=== PATIENT | male | born 1970 | race Caucasian/White ===

== ENCOUNTER → 2019-03-26 | Emergency (ER) | payer MEDICAID ==
[~2019-03-26] VITALS: Ht 175.3 cm; Wt 71.7 kg
[~2019-03-26] MED LIST: AMOXICILLIN500 MG ORAL; BENTYL10 MG ORAL; NKM; PERMETHRIN60 GM TOPIC
[2019-03-26 08:45] VITALS: BP 100/64
--- NOTE | 2019-03-26 08:45 | NUR ---
ED Nurse Note: PT AAOX4, VSS, WITH NO SIGN OF DISTRESS. PT WALKED IN TO ER C/O RIGHT EARACHE X 3 DAYS AGO. PT DENIES DRAINAGE OR CHANGES IN HEARING. PT ALSO SUSPECTS SCABIES DUE TO GENERALIZED ITCHING X 2 WEEKS AGO. PT HAS TWO SCRATCHES ON LEFT ARM. NO MAJOR SKIN ISSUES NOTED.
--- NOTE | 2019-03-26 08:50 | NUR ---
ED Nurse Note: MD AT BEDSIDE. PT IS CALM AND COOPERATIVE.
[2019-03-26 09:07] VITALS: BP 101/62
--- NOTE | 2019-03-26 09:07 | NUR ---
ER DISCHARGE NOTE: Patient is cleared to be discharged per ERMD, pt is aox4, on room air, with stable vital signs. pt was given dc and prescription instructions, pt was able to verbalize understanding, pt id band and iv site removed without complications. pt is able to ambulate with steady gait. pt took all belongings.
--- NOTE | 2019-03-26 09:49 | Emergency Room Report ---
History of Present Illness General Chief Complaint: Earache Source: Patient Present Illness HPI 48-year-old male presents ED for evaluation. Complaining of right ear pain and rash for the last 3 days. Pain is dull, 5 out of 10, nonradiating. Denies fevers or chills. Denies cough. Denies recent travel. Patient states he thinks he has shingles scabies. States he has had it previously. Feels the same. Denies pain. States is very itchy to his general body. States he resides in a home which is very dirty with multiple other residents. No other aggravating relieving factors. Denies any other associated symptoms Allergies: Coded Allergies: No Known Allergies (Unverified , 01/12/16) Patient History Past Medical History: other - ulceratie colitis Past Surgical History: none Pertinent Family History: none Social History: Denies: smoking, alcohol use, drug use Immunizations: UTD Reviewed Nursing Documentation: PMH: Agreed; PSxH: Agreed Nursing Documentation-PMH Past Medical History: No History, Except For Hx Gastrointestinal Problems: Yes - Ulcerative collitis Review of Systems All Other Systems: negative except mentioned in HPI Physical Exam Vital Signs Date Time Temp Pulse Resp B/P (MAP) Pulse Ox O2 Delivery O2 Flow Rate FiO2 03/26/19 08:37 97.9 60 16 100/64 (76) 100 Room Air Sp02 EP Interpretation: reviewed, normal General Appearance: no apparent distress, alert, GCS 15, non-toxic Head: normocephalic, atraumatic Eyes: bilateral eye normal inspection, bilateral eye PERRL ENT: hearing grossly normal, normal pharynx, no angioedema, normal voice, other - R TM poor light reflex, erythematous Neck: full range of motion, supple/symm/no masses Respiratory: chest non-tender, lungs clear, normal breath sounds, speaking full sentences Cardiovascular #1: regular rate, rhythm, no edema Cardiovascular #2: 2+ carotid (R), 2+ carotid (L), 2+ radial (R), 2+ radial (L) , 2+ dorsalis pedis (R), 2+ dorsalis pedis (L) Gastrointestinal: normal bowel sounds, non tender, soft, non-distended, no guarding, no rebound Rectal: deferred Genitourinary: normal inspection, no CVA tenderness Musculoskeletal: back normal, gait/station normal, normal range of motion, non- tender Neurologic: alert, oriented x3, responsive, motor strength/tone normal, sensory intact, speech normal Psychiatric: judgement/insight normal, memory normal, mood/affect normal, no suicidal/homicidal ideation Reflexes: 3+ bicep (R), 3+ bicep (L), 3+ tricep (R), 3+ tricep (L), 3+ knee (R) , 3+ knee (L) Skin: rash - multiple linear excoriations to diffuse skin. nonerythematous base. no discharge Lymphatic: no adenopathy Medical Decision Making Diagnostic Impression: Primary Impression: Rash Additional Impression: Otitis media Qualified Codes: H66.90 - Otitis media, unspecified, unspecified ear ER Course Hospital Course 48 yo M presents to ED c/o R ear pain. rash to body Differential diagnoses include: TM perforation, otitis externa, otitis media Clinical course Patient placed on stretcher. After initial history, physical exam reveals a male in no acute distress. R TM poor light reflex. There is a diffuse linear rash to the body. Excoriations. None erythematous base. Consideration for rabies based on presentation. discussed findings with patient. Will discharge home with prescriptions for amoxicillin and permethrin. Safe for discharge for close outpatient follow-up. Does not have a PMD. Will provide referrals Diagnosis - otitis media, rash Stable and discharged to home with Rx permethin, amoxicillin. Followup with PMD. Return to ED if symptoms recur or worsen Last Vital Signs Date Time Temp Pulse Resp B/P (MAP) Pulse Ox O2 Delivery O2 Flow Rate FiO2 03/26/19 09:07 97.6 68 18 101/62 100 Room Air Status: improved Disposition: HOME, SELF-CARE Condition: Stable Scripts Amoxicillin* (AMOXIL*) 500 Mg Capsule 500 MG ORAL THREE TIMES A DAY, #21 CAP Prov: David Tamez MD 03/26/19 Permethrin* (ELIMITE*) 60 Gm Cream..g. 1 APPLIC TOPIC ONCE, #60 GM 1 Refill Apply cream from head to toe; leave on for 8-14 hours before washing off with water; may reapply in 1 week if live mites appear. Prov: David Tamez MD 03/26/19 Referrals: [facility] Patient Instructions: Contact Precautions, [id number], Otitis Media, Adult David Tamez MD Mar 26, 2019 09:49
== END | disposition home or self-care (01) ==
LOC: EMR 09:52
DX: H66.90 Otitis media, unspecified, unspecified ear (principal); R21 Rash and other nonspecific skin eruption
CPT/HCPCS: 99282

== ENCOUNTER 2019-04-09 13:16 | Emergency (ER) | payer MEDICAID ==
[~2019-04-09] VITALS: Ht 175.3 cm; Wt 72.6 kg
[2019-04-09 13:37] VITALS: BP 112/62
--- NOTE | 2019-04-09 13:47 | NUR ---
ED Nurse Note: PT FROM HOME CAME IN DUE TO RIGHT EAR PAIN. SATES HE WAS SEEN HERE AT [facility] AND WAS PRESCRIBED WITH AN ANTIBIOTIC WHICH HE FINISHED BUT STILL HAVING PAIN. DENIES EAR DRAINAGE OR FEVER. AAO X4, AMBULATORY.
--- NOTE | 2019-04-09 14:13 | Emergency Room Report ---
History of Present Illness General Chief Complaint: Earache Source: Patient Present Illness HPI 48 YO male presents to the ED c/o right ear pain x 10 days. Failed initial outpatient oral antibiotic regimen. Patient reports he was prescribed amoxicillin. Patient has been taking Tylenol, Aleve and Advil [id number] with no relief of his symptoms. Patient denies ear discharge, bleeding, Q-tip use. Patient reports pain is radiating forward towards his right TMJ/42 back molars. Patient denies tenderness to his teeth or swelling of his gums. Patient reports tenderness just anterior to his right ear. He denies fevers or chills. Denies any notable aggravating factors. No significant hx of immune compromise. Allergies: Coded Allergies: No Known Allergies (Unverified , 01/12/16) Patient History Past Medical History: see triage record Past Surgical History: other - ruptured appy, pericarditis Pertinent Family History: none Reviewed Nursing Documentation: PMH: Agreed; PSxH: Agreed Nursing Documentation-PMH Past Medical History: No History, Except For Hx Gastrointestinal Problems: Yes - Ulcerative collitis Review of Systems All Other Systems: negative except mentioned in HPI Physical Exam Vital Signs Date Time Temp Pulse Resp B/P (MAP) Pulse Ox O2 Delivery O2 Flow Rate FiO2 04/09/19 13:37 98.6 64 16 112/62 (79) 100 Room Air Sp02 EP Interpretation: reviewed, normal General Appearance: no apparent distress, alert, GCS 15, non-toxic Head: normocephalic, atraumatic Eyes: bilateral eye normal inspection, bilateral eye PERRL ENT: hearing grossly normal, normal voice, other - Right tympanic membrane is erythematous and bulging, the canal is mildly swollen, no d/c, maceration or lesions. Left canal and TM are WNL. Neck: full range of motion Respiratory: lungs clear, normal breath sounds, speaking full sentences Cardiovascular #1: regular rate, rhythm Musculoskeletal: gait/station normal, normal range of motion, non-tender Neurologic: alert, oriented x3, responsive, motor strength/tone normal, sensory intact, speech normal, grossly normal Psychiatric: judgement/insight normal Lymphatic: no adenopathy Medical Decision Making PA Attestation Dr. Isidro is my supervising physician whom pt. management has been discussed with. Diagnostic Impression: Primary Impression: Otitis media Qualified Codes: H66.91 - Otitis media, unspecified, right ear ER Course 48 YO male presents to the ED c/o right ear pain x 10 days. Failed initial outpatient oral antibiotic regimen. Patient reports he was prescribed amoxicillin. Patient has been taking Tylenol, Aleve and Advil [id number] with no relief of his symptoms. Patient denies ear discharge, bleeding, Q-tip use. Patient reports pain is radiating forward towards his right TMJ/42 back molars. Patient denies tenderness to his teeth or swelling of his gums. Patient reports tenderness just anterior to his right ear. He denies fevers or chills. Denies any notable aggravating factors. No significant hx of immune compromise. Ddx considered but are not limited to OM, OE, mastoiditis, TM perforation, FB Vital signs: are WNL, pt. is afebrile H&PE are most consistent with otitis media ORDERS: none required at this time, the diagnosis is clinical -OTOSCOPY: Right tympanic membrane is erythematous and bulging, the canal is mildly swollen, no d/c, maceration or lesions. Left canal and TM are WNL. ED INTERVENTIONS: None required at this time. DISCHARGE: At this time pt. is stable for d/c to home. With PO ABX. Will provide printed patient care instructions, and any necessary prescriptions. Care plan and follow up instructions have been discussed with the patient prior to discharge. RX: Cefdinir 300mg BID x 10 days Last Vital Signs Date Time Temp Pulse Resp B/P (MAP) Pulse Ox O2 Delivery O2 Flow Rate FiO2 04/09/19 13:37 98.6 64 16 112/62 (79) 100 Room Air Disposition: HOME, SELF-CARE Condition: Stable Scripts Acetaminophen With Codeine (T#3) (TYLENOL #3 TAB*) Y Tab 1 TAB ORAL Q8HR PRN for For Pain, #9 TAB Prov: Isabel Jade 04/09/19 Cefdinir (CEFDINIR) 300 Mg Capsule 300 MG PO BID for 10 Days, #20 CAP Prov: Isabel Jade 04/09/19 Patient Instructions: Otitis Media, Adult, [id number] Additional Instructions: Take medications as directed. Follow up with a Primary Care Provider for ENT referral in 3-5 days, even if your symptoms have resolved. for Failed outpatient antibiotic treatments --Please contact your medical insurance company ( number on the back of your insurance card), if you do not already have a primary care provider Return sooner to ED if new symptoms occur, or current symptoms become worse. Do not drink alcohol, drive, or operate heavy machinery while taking Tylenol # 3 as this may cause drowsiness. - Please note that this Emergency Department Report was dictated using [employer] nurse technology software, occasionally this can lead to erroneous entry secondary to interpretation by the dictation equipment. Isabel Jade Apr 09, 2019 14:13
[2019-04-09] MEDS ORDERED: CEFDINIR300 MG PO (14:18)
[2019-04-09] MEDS ORDERED: ACETAMINOPHEN-1 EAC1 ORAL (14:18)
[2019-04-09 14:26] VITALS: BP 125/77
--- NOTE | 2019-04-09 14:26 | NUR ---
ER DISCHARGE NOTE: Patient is cleared to be discharged per PA, pt is aox4, on room air, with stable vital signs. pt was given dc and prescription instructions, pt was able to verbalize understanding, pt id band removed. pt is able to ambulate with steady gait. pt took all belongings.
== END 2019-04-09 14:26 | disposition home or self-care (01) ==
LOC: EMR 14:10
DX: H66.91 Otitis media, unspecified, right ear (principal)
CPT/HCPCS: 99282